=== PATIENT | female | born 1965 | race American Indian/Alaskan Native ===

== ENCOUNTER 2016-12-30 06:52 | Day surgery (SDC) | payer OTHER ==
[2016-12-30] MEDS ORDERED: NACL 0.9% 1000 ML 1,000 ML IV SCH (08:00)
--- NOTE | 2016-12-30 08:06 | Anesthesia Day of Surgery ---
Anesthesia Day of Surgery - Day of Surgery Patient Examined: Yes Patient H&P Reviewed: Yes Patient is NPO: Yes
--- NOTE | 2016-12-30 08:06 | Anesthesia Consultation ---
Anesthesia Consult and Med Hx Date of service: 12/30/16 - Airway Anesthetic Teeth Evaluation: Good, Crowns (BOTTOM RIGHT) ROM Head & Neck: Adequate Mental/Hyoid Distance: Adequate Mallampati Class: Class II Intubation Access Assessment: Probably Good - Pulmonary Exam CTA: Yes - Cardiac Exam Cardiac Exam: RRR - Pre-Operative Health Status ASA Pre-Surgery Classification: ASA3 Proposed Anesthetic Plan: MAC - Pulmonary Hx Smoking: No Hx Asthma: No Hx Sleep Apnea: No - Cardiovascular System Hx Hypertension: Yes - Central Nervous System Hx Seizures: No CVA: No - Endocrine Hx Renal Disease: No Hx Liver Disease: No Hx Thyroid Disease: No - Other Systems Hx Obesity: Yes (MORBID)
[2016-12-30] MEDS ORDERED: DIPRIVAN 10 MG/ML IV ONE ×2 (08:09)
[2016-12-30] MEDS ORDERED: WATER FOR IRRIG STERILE IR ONE (08:11)
--- NOTE | 2016-12-30 08:59 | Short Stay Summary ---
Short Stay Documentation - Allergies and Medications Current Medications: Allergies No Known Allergies Allergy (Verified 12/30/16 08:17) Home Medications Medication Instructions Recorded Confirmed Last Taken Type Hydrochlorothiazide 1 tab PO DAILY 12/29/16 12/30/16 12/30/16 History Lisinopril 1 tab PO DAILY 12/29/16 12/30/16 12/30/16 History Verapamil 1 tab PO DAILY 12/29/16 12/30/16 12/30/16 History Active Medications Sodium Chloride (Nacl 0.9% 1000 Ml) 1,000 mls @ 50 mls/hr IV DIRECT JOCE Last Admin: 12/30/16 08:18 Dose: 50 mls/hr - Physical exam Rectal Exam: tenderness - Brief post op/procedure progress note Date of procedure: 12/30/16 Pre-op diagnosis: Colon cancer screening Post-op diagnosis: same (1. Colon polyp 2. Poor prep 2. Internal hemorrhoids) Procedure: Colonoscopy with snare polypectomy and control of bleeding with Endoclip Anesthesia: MAC Findings: as above Surgeon: DEONTE SHANNON Estimated blood loss: none Pathology: list (1Rectosigmoid polyp) Condition: stable - Disposition Condition at discharge: Stable Disposition: DC-01 TO HOME OR SELFCARE Short Stay Discharge Plan Activity: no restrictions Weight Bearing Status: Full Weight Bearing Diet: regular Follow up with: GWENDOLYN CAMACHO III, APRN-BC [Primary Care Provider] - 7 Days
[2016-12-30 09:21] VITALS: BP 168/90
--- NOTE | 2016-12-30 13:01 | Post Anesthesia Evaluation ---
- Post Anesthesia Evaluation Patient Participated: Yes Airway Patent: Yes Stable Respiratory Function: Yes Nausea/Vomiting: No Temp > 96.8F: Yes Pain Manageable: Yes Adequeate Hydration: Yes Anesthesia Complications: No Block Receding Appropriately: Not Applicable Patient on Ventilator: No
== END 2016-12-30 06:53 | disposition home or self-care (01) ==
LOC: GIO 06:52
PROVIDERS: ATTEND Internal Medicine Gastroenterology
DX: Z12.11 Encounter for screening for malignant neoplasm of colon (principal); D12.5 Benign neoplasm of sigmoid colon; K64.8 Other hemorrhoids; I10 Essential (primary) hypertension; E66.01 Morbid (severe) obesity due to excess calories; Z68.41 Body mass index [BMI] 40.0-44.9, adult; Z79.899 Other long term (current) drug therapy; Z98.890 Other specified postprocedural states; Z90.710 Acquired absence of both cervix and uterus
CPT/HCPCS: 45385; 88305; J2704; J7030